=== PATIENT | female | born 1995 | race American Indian/Alaskan Native ===

== ENCOUNTER 2017-01-19 23:09 | Inpatient (IN) | payer BC ==
--- NOTE | 2017-01-19 23:24 | ED PDOC ---
Arrival/HPI - General Time Seen by Provider: 01/19/17 23:24 Historian: Patient - History of Present Illness Narrative History of Present Illness (Text): 01/19/17 23:24 21y/o female, no significant pmh, nkda, c/o facial swelling and itching started about 9 hours ago. Pt. stated that she started to have eyelid and facial swelling started about 8 hours ago after sleeping, took benadryl with mild improvement and but started to have lip swelling tonight, no difficulty breathing or swallowing, no night sweat, stated that she feels itching, no eye pain, no painful movement of the eye, no palpitation, no rash, no other medical or psychological complaints. Last benadryl about 8 hours ago. Past Medical History - Provider Review Nursing Documentation Reviewed: Yes - Infectious Disease Hx of Infectious Diseases: None - Psychiatric Hx Substance Use: No - Anesthesia Hx Anesthesia: No - Suicidal Assessment Feels Threatened In Home Enviroment: No Family/Social History - Physician Review Nursing Documentation Reviewed: Yes Family/Social History: Unknown Family HX Smoking Status: Never Smoked Hx Alcohol Use: Yes Hx Substance Use: No Allergies/Home Meds Allergies/Adverse Reactions: Allergies No Known Allergies Allergy (Verified 01/19/17 23:23) Home Medications: Home Meds Medication Instructions Recorded Confirmed No Known Home Med 01/07/12 01/20/17 Review of Systems - Review of Systems Constitutional: absent: Fatigue, Fevers Eyes: absent: Vision Changes ENT: absent: Hearing Changes, Sore Throat Respiratory: absent: SOB, Cough Cardiovascular: absent: Chest Pain Gastrointestinal: absent: Abdominal Pain, Nausea, Vomiting Musculoskeletal: absent: Arthralgias, Back Pain Neurological: absent: Headache, Dizziness Psychiatric: absent: Depression Physical Exam Vital Signs Reviewed: Yes Vital Signs Temp Pulse Resp BP Pulse Ox 01/20/17 02:00 69 16 118/76 99 01/19/17 23:24 99.4 F 82 18 120/82 100 Temperature: Afebrile Blood Pressure: Normal Pulse: Regular Respiratory Rate: Normal Appearance: Positive for: Well-Appearing, Non-Toxic, Comfortable Pain Distress: None Mental Status: Positive for: Alert and Oriented X 3 - Systems Exam Head: Present: Atraumatic, Normocephalic Pupils: Present: PERRL Extroacular Muscles: Present: EOMI Conjunctiva: Present: Normal Mouth: Present: Moist Mucous Membranes, Normal Tounge Pharnyx: No: Muffled/Hoarse Voice, Strider, Soft Palate/Uvular Edema Neck: Present: Normal Range of Motion, Trachea Midline. No: Lymphadenopathy Respiratory/Chest: Present: Clear to Auscultation, Good Air Exchange. No: Respiratory Distress, Accessory Muscle Use, Wheezes, Decreased Breath Sounds, Rales, Retracting, Rhonchi, Tachypneic, Tender to Palpation Cardiovascular: Present: Regular Rate and Rhythm, Normal S1, S2. No: Murmurs Abdomen: Present: Normal Bowel Sounds. No: Tenderness, Distention, Peritoneal Signs Back: Present: Normal Inspection Upper Extremity: Present: Normal Inspection. No: Cyanosis, Edema Lower Extremity: Present: Normal Inspection. No: Edema Neurological: Present: GCS=15, Speech Normal, Motor Func Grossly Intact, Gait Normal, Memory Normal Skin: Present: Warm, Dry, Rashes (+bilateral perirobital swelling and no erythematous/cellulitis or streaking, +angioedema noted. ), Normal Color Psychiatric: Present: Alert, Oriented x 3, Normal Insight, Normal Concentration Medical Decision Making ED Course and Treatment: 01/19/17 23:43 -labs -IV solumedrol/pepcid/benadryl/epi 0.3mg -environmental monitoring technician -observe and reassess 01/20/17 00:12 -urine hcg negative. 01/20/17 01:23 -Labs are non-significant except elevated eosinophil. -The swelling remains with the rt. sided of the eyelid more swelling now, will need observation overnight. -Pt. evaluated by Dr. Campos and agreed this will need over night observation. -Pt. has no airway compromising at this point, no throat or tongue itching/ swelling, not stable to be discharged home. -Dr. Mckinney paged. 01/20/17 01:31 -Dr. Mckinney called back, discussed about the case and expressed my concerning about worsening of the facial swelling, request to place the patient to be on the tele. -Dr. Read awared of the discussion and agreed on the observation tele plan. -Pt. will need close observation for possible airway endanger due to the angioedema and will need closer observation than just plain med/surg floor. - Lab Interpretations Lab Results: 01/20/17 00:10 12/04/17 00:10 Lab Results 01/20/17 00:10: Sodium 141, Potassium 3.6, Chloride 107, Carbon Dioxide 25, Anion Gap 14, BUN 13, Creatinine 1.0, Est GFR ( Amer) > 60, Est GFR (Non- Af Amer) > 60, Random Glucose 95, Calcium 9.6, Total Bilirubin 0.5, AST 38 H, ALT 39, Alkaline Phosphatase 57, Total Protein 7.5, Albumin 4.3, Globulin 3.3, Albumin/Globulin Ratio 1.3 01/20/17 00:10: WBC 7.0 D, RBC 4.92, Hgb 14.4, Hct 42.6, MCV 86.6, MCH 29.3, MCHC 33.8, RDW 12.6, Plt Count 384, MPV 10.1, Gran % 41.5 L, Lymph % (Auto) 38.1 H, Coos % (Auto) 6.8 H, Eos % (Auto) 12.9 H, Baso % (Auto) 0.7, Gran # 2.92 , Lymph # 2.7, Coos # 0.5, Eos # 0.9 H, Baso # 0.05 - RAD Interpretation Radiology Orders: 01/20/17 01:27 CHEST PORTABLE [RAD] Stat no active disease Information Systems Security Developer: Radiologist - Medication Orders Current Medication Orders: Discontinued Medications Albuterol/Ipratropium (Duoneb 3 Mg/0.5 Mg (3 Ml) Ud) 3 ml IH [id number] Last Admin: 01/22/17 14:03 Dose: Diphenhydramine HCl (Benadryl) 50 mg IVP STAT STA Stop: 01/19/17 23:39 Last Admin: 01/20/17 00:00 Dose: 50 mg IVP Administration Document 01/20/17 00:00 SC (Rec: 01/20/17 00:25 [place] [facility] [id number] Charges for Administration # of IVP Administrations 1 Diphenhydramine HCl (Benadryl) 50 mg IVP Q6H PRN PRN Reason: Allergy symptoms Last Admin: 01/20/17 10:15 Dose: 50 mg IVP Administration Document 01/20/17 10:15 RDS (Rec: 01/20/17 10:15 RDS [id number]) Charges for Administration # of IVP Administrations 1 Diphenhydramine HCl (Benadryl) 25 mg PO Q6 PRN PRN Reason: Allergy symptoms Last Admin: 01/21/17 21:11 Dose: 25 mg Epinephrine HCl (Epinephrine) 0.3 mg SC STAT STA Stop: 01/19/17 23:40 Last Admin: 01/20/17 00:00 Dose: 0.3 mg Subcutaneous Administrations Document 01/20/17 00:00 SC (Rec: 01/20/17 00:26 [place] [facility] [id number][place] Injection Site MAR Injection Site Left Deltoid Charges for Administration # of Subcutaneous Administrations 1 Famotidine (Pepcid) 20 mg IVP STAT STA Stop: 01/19/17 23:39 Last Admin: 01/20/17 00:00 Dose: 20 mg IVP Administration Document 01/20/17 00:00 SC (Rec: 01/20/17 00:26 [place] [facility] [id number] Charges for Administration # of IVP Administrations 1 Famotidine (Pepcid) 20 mg IVP DAILY [facility] Last Admin: 01/21/17 09:12 Dose: 20 mg IVP Administration Document 01/21/17 09:12 J (Rec: 01/21/17 09:12 [id number]) Charges for Administration # of IVP Administrations 1 Famotidine (Pepcid) 40 mg PO HS [facility] Last Admin: 01/21/17 21:12 Dose: 40 mg Famotidine (Pepcid) 20 mg PO HS YAEL Famotidine (Pepcid) 20 mg PO HS YAEL Methylprednisolone (Solu-Medrol) 125 mg IVP STAT STA Stop: 01/19/17 23:39 Last Admin: 01/20/17 00:00 Dose: 125 mg IVP Administration Document 01/20/17 00:00 SC (Rec: 01/20/17 00:26 [place] [facility] [id number][place] Charges for Administration # of IVP Administrations 1 Methylprednisolone (Solu-Medrol) 40 mg IVP Q6H [facility] Last Admin: 01/21/17 16:57 Dose: 40 mg IVP Administration Document 01/21/17 16:57 TO (Rec: 01/21/17 16:58 [place] [facility] [id number][place] Charges for Administration # of IVP Administrations 1 Methylprednisolone (Solu-Medrol) 30 mg IVP Q6H [facility] Last Admin: 01/22/17 08:51 Dose: 30 mg IVP Administration Document 01/22/17 08:51 LMN (Rec: 01/22/17 08:51 LMN [facility] [id number][place] Charges for Administration # of IVP Administrations 1 Methylprednisolone (Solu-Medrol) 30 mg IVP BID [facility] Montelukast Sodium (Singulair) 10 mg PO HS [facility] Last Admin: 01/21/17 21:12 Dose: 10 mg - PA / PLANT CLERK / Resident Statement MD/DO has reviewed & agrees with the documentation as recorded. MD/DO has examined the patient and agrees with the treatment plan. Disposition/Present on Arrival - Present on Arrival Any Indicators Present on Arrival: No History of DVT/PE: No History of Uncontrolled Diabetes: No Urinary Catheter: No History of Decub. Ulcer: No History Surgical Site Infection Following: None - Disposition Have Diagnosis and Disposition been Completed?: Yes Diagnosis: Angioedema Disposition: HOSPITALIZED Disposition Time: :27 Patient Plan: Observation, Telemetry Condition: GUARDED
[2017-01-19] MEDS ORDERED: DiphenhydrAMINE 50 mg/ml Inj IVP STA (23:38)
[2017-01-19] MEDS ORDERED: EPINEPHrine 1 mg/ml (1:1000) Inj SC STA (23:39)
[2017-01-20 00:54] LABS: BASO # 0.05 K/mm3 (0.0-2.0); BASO % 0.7 % (0.0-3.0); EOS # 0.9 (0.0-0.7); EOS % 12.9 % (1.5-5.0); GRAN # 2.92 (1.4-6.5); GRAN % 41.5 % (50.0-68.0); HEMATOCRIT 42.6 % (36.0-48.0); LYMPH # 2.7 (1.2-3.4); LYMPH % 38.1 % (22.0-35.0); MEAN CELL VOLUME 86.6 fl (80.0-105.0); MEAN CORPUSCULAR HEMOGLOBIN 29.3 pg (25.0-35.0); MEAN CORPUSCULAR HGB CONC 33.8 g/dl (31.0-37.0); MEAN PLATELET VOLUME 10.1 fl (7.0-11.0); MONO # 0.5 (0.1-0.6); MONO % 6.8 % (1.0-6.0); RED CELL DISTRIBUTION WIDTH 12.6 % (11.5-14.5)
[2017-01-20 00:59] LABS: ALB/GLOB RATIO 1.3 (1.1-1.8); ALKALINE PHOSPHATASE 57 U/L (38-126); ALT/SGPT 39 U/L (7-56); AST/SGOT 38 U/L (14-36); BILIRUBIN,TOTAL 0.5 mg/dL (0.2-1.3); BLOOD UREA NITROGEN 13 mg/dL (7-21); CALCIUM 9.6 mg/dL (8.4-10.5); CARBON DIOXIDE 25 mmol/L (21-33); CHLORIDE 107 mmol/L (98-107); GFR AFRICAN-AMERICAN > 60; GLUCOSE,RANDOM 95 mg/dL (70-110); POTASSIUM 3.6 mmol/L (3.6-5.0); SODIUM 141 mmol/L (132-148); TOTAL PROTEIN 7.5 g/dL (5.8-8.3)
[2017-01-20 06:19] VITALS: BMI 20.9
--- NOTE | 2017-01-20 08:39 | RAD ---
HISTORY: medical clearance COMPARISON: 09/25/2014 FINDINGS: LUNGS: No active pulmonary disease. PLEURA: No significant pleural effusion identified, no pneumothorax apparent. CARDIOVASCULAR: Normal. OSSEOUS STRUCTURES: No significant abnormalities. VISUALIZED UPPER ABDOMEN: Normal. OTHER FINDINGS: None. IMPRESSION: No active disease.
[2017-01-20] MEDS ORDERED: DiphenhydrAMINE 50 mg/ml Inj IVP PRN (10:02)
[2017-01-20] MEDS: MethylPREDNISolone 40 mg Vial IVP SCH ×3 (10:15→21:30)
[2017-01-20] MEDS: Albuterol-Ipratrop 3 mg / 0.5 (3 ml) UD IH SCH ×2 (14:23→19:37)
--- NOTE | 2017-01-20 17:55 | CP.PCM.HP ---
<Queenie Paul - Last Filed: 01/21/17 00:40> History of Present Illness - History of Present Illness History of Present Illness: 21 yr female w/ no past medical history. Presents with angioedema of face and esophilia. She denies any allergies to food and any changes in the foods eaten. She denies any headaches, vision changes, dizziness/ lightheadedness, numbness/tingling, SOB, chest pain, diarrhea, constipation or urinary frequency. No distress noted. Present on Admission - Present on Admission Any Indicators Present on Admission: No History of DVT/PE: No History of Uncontrolled Diabetes: No Urinary Catheter: No Decubitus Ulcer Present: No Review of Systems - Review of Systems Systems not reviewed;Unavailable: Acuity of Condition - Constitutional Constitutional: As Per HPI - EENT Eyes: absent: As Per HPI, Blind Spots, Blurred Vision, Change in Vision, Decreased Night Vision, Diplopia, Discharge, Dry Eye, Exophthalmos, Floaters ( edema of bilateral eyes ), Irritation (edema), Itchy Eyes, Loss of Peripheral Vision, Pain, Photophobia, Requires Corrective Lenses, Sees Flashes, Spots in Vision, Tunnel Vision, Other Visual Disturbances, Loss of Vision, Other Nose/Mouth/Throat: Facial Pain (severe swelling of lips and face) - Cardiovascular Cardiovascular: As Per HPI. absent: Acrocyanosis, Chest Pain, Chest Pain at Rest, Chest Pain with Activity, Claudication, Diaphoresis, Dyspnea, Dyspnea on Exertion, Edema, Irregular Heart Rhythm, Pain Radiating to Arm/Neck/Jaw, Leg Edema, Leg Ulcers, Lightheadedness, Orthopnea, Palpitations, Paroxysmal Nocturnal Dyspnea, Pedal Edema, Radiating Pain, Rapid Heart Rate, Slow Heart Rate, Syncope, Other - Respiratory Respiratory: As Per HPI. absent: Cough, Dyspnea, Hemoptysis, Dyspnea on Exertion, Wheezing, Snoring, Stridor, Pain on Inspiration, Chest Congestion, Excessive Mucous Production, Change in Mucous Color, Pain with Coughing, Other - Gastrointestinal Gastrointestinal: As Per HPI. absent: Abdominal Pain, Belching, Bloating, Change in Bowel Habits, Change in Stool Character, Coffee Ground Emesis, Constipation, Cramping, Diarrhea, Dyspepsia, Dysphagia, Early Satiety, Excessive Flatus, Fecal Incontinence, Heartburn, Hematemesis, Hematochezia, Loose Stools, Melena, Nausea, Odynophagia, Temesmus, Vomiting, Other - Genitourinary Genitourinary: As Per HPI. absent: Change in Urinary Stream, Difficulty Urinating, Dysuria, Flank Pain, Hematuria, Pyuria, Nocturia, Urinary Incontinence, Urinary Frequency, Urinary Hesitance, Urinary Urgency, Voiding Freq/Small Amts, Freq UTI, Hx Renal/Bladder Calculi, Hx /Renal Surgery, Bladder Distension, Other - Reproductive: Female Reproductive:Female: Currently Menstual. absent: As Per HPI, Amenorrhea, Amenorrhea/ Control, Cycle <21 Days, Cycle >35 Days, Cycle Variable, Menses 1-7 Days, Menses >/= 8 Days, Menses Variable, Cycle > 4 Weeks Between, No Menses for 6 Months, Heavy Menses, Light Menses, Normal Menses, Spotting Between Cycles, S/P Hysterectomy, Menopausal, Post Menopausal, Premenarche, Abnormal Vaginal Bleeding, Dysmenorrhea, Dyspareunia, Genital Lesions, Genital Pruritis, Pelvic Pain, Prolapse Symptoms, Sexual Dysfunction, Vaginal Discharge , Vaginal Dryness, Vaginal Odor, Vaginal Pruritis, Other - Musculoskeletal Musculoskeletal: As Per HPI. absent: Abnormal Gait, Arthralgias, Atrophy, Back Pain, Deformity, Joint Swelling, Limited Range of Motion, Loss of Height, Muscle Cramps, Muscle Weakness, Myalgias, Neck Pain, Numbness, Radiating Pain into Limb, Stiffness, Tingling, Other - Integumentary Additional comments: severe edema of face - Neurological Neurological: As Per HPI. absent: Abnormal Gait, Abnormal Hearing, Abnormal Movements, Abnormal Speech, Behavioral Changes, Burning Sensations, Confusion, Convulsions, Disequilibrium, Dizziness, Numbness, Focal Weakness, Frequent Falls , Headaches, Lack of Coordination, Loss of Vision, Memory Loss, Paresthesias, Radicular Pain, Restless Legs, Sensory Deficit, Syncope, Tingling, Tremor, Vertigo, Weakness, Other Visual Disturbances, Other - Psychiatric Psychiatric: As Per HPI. absent: Abnormal Sleep Pattern, Anhedonia, Anxiety, Auditory Hallucinations, Behavioral Changes, Change in Appetite, Change in Libido, Confusion, Depression, Difficulty Concentrating, Hallucinations, Homicidal Ideation, Hopelessness, Irritability, Memory Loss, Mood Swings, Panic Attacks, Paranoia, Suicidal Ideation, Visual Hallucinations, Tactile Hallucinations, Other - Endocrine Endocrine: As Per HPI. absent: Change in Body Appearance, Change in Libido, Cold Intolorance, Deepening of Voice, Excessive Sweating, Fatigue, Flushing, Heat Intolorance, Increase in Ring/Shoe/Hat Size, Palpitations, Polydipsia, Polyphagia, Polyuria, Other - Hematologic/Lymphatic Hematologic: As Per HPI. absent: Easy Bleeding, Easy Bruising, Lymphadenopathy , Other Past Patient History - Infectious Disease Hx of Infectious Diseases: None - Past Medical History & Family History Past Family History: Reviewed and not pertinent - Past Social History Smoking Status: marijuana Alcohol: Social Drugs: Cannabis - CARDIAC Hx Cardiac Disorders: No - PULMONARY Hx Respiratory Disorders: No - NEUROLOGICAL Other/Comment: hereditary angio edema - HEENT Hx HEENT Problems: No - RENAL Hx Chronic Kidney Disease: No - ENDOCRINE/METABOLIC Hx Endocrine Disorders: No - HEMATOLOGICAL/ONCOLOGICAL Hx Blood Disorders: No - INTEGUMENTARY Hx Dermatological Problems: No - MUSCULOSKELETAL/RHEUMATOLOGICAL Hx Falls: No - GASTROINTESTINAL Hx Gastrointestinal Disorders: No - GENITOURINARY/GYNECOLOGICAL Hx Genitourinary Disorders: No LMP:: 01/20/17 - PSYCHIATRIC Hx Substance Use: Yes (loan) - SURGICAL HISTORY Hx Surgeries: No - ANESTHESIA Hx Anesthesia: No Meds Allergies/Adverse Reactions: Allergies Allergy/AdvReac Type Severity Reaction Status Date / Time No Known Allergies Allergy Verified 01/19/17 23:23 Physical Exam - Constitutional Appears: In Acute Distress (severe edema of face) - Head Exam Head Exam: ATRAUMATIC, NORMAL INSPECTION, NORMOCEPHALIC - Eye Exam Eye Exam: Periorbital swelling, Periorbital tenderness. absent: Conjunctival injection, EOMI, Normal appearance, Nystagmus, PERRL, Scleral icterus - ENT Exam ENT Exam: Mucous Membranes Moist Additional comments: angioedema of lips - Neck Exam Neck exam: Positive for: Full Rom - Respiratory Exam Respiratory Exam: Clear to Auscultation Bilateral, NORMAL BREATHING PATTERN. absent: Accessory Muscle Use, Chest Wall Tenderness, Decreased Breath Sounds, Prolonged Expiratory Phase, Rales, Rhonchi, Wheezes, Respiratory Distress, Stridor - Cardiovascular Exam Cardiovascular Exam: REGULAR RHYTHM. absent: Bradycardia, Tachycardia, Clicks, Diastolic murmur, Gallop, Irregular Rhythm, JVD, RRR, Rubs, +S1, +S2, +S4, Systolic Murmur - GI/Abdominal Exam GI & Abdominal Exam: Normal Bowel Sounds, Soft. absent: Bruit, Diminished Bowel Sounds, Distended, Firm, Guarding, Hernia, Hyperactive Bowel Sounds, Hypoactive Bowel Sounds, Mass, Organomegaly, Pulsatile Mass, Rebound, Rigid, Tenderness - Extremities Exam Extremities exam: Positive for: normal inspection. Negative for: calf tenderness, full ROM, joint swelling, normal capillary refill, pedal edema, tenderness, pedal pulses present - Back Exam Back exam: NORMAL INSPECTION. absent: CVA tenderness (L), CVA tenderness (R), FULL ROM, muscle spasm, paraspinal tenderness, rash noted, tenderness, vertebral tenderness - Neurological Exam Neurological exam: Alert, CN II-XII Intact, Normal Gait, Oriented x3, Reflexes Normal - Psychiatric Exam Psychiatric exam: Normal Affect, Normal Mood - Skin Skin Exam: Urticaria Results - Vital Signs Recent Vital Signs: Last Vital Signs Temp 98.2 F 01/20/17 06:00 Pulse 98 H 01/20/17 14:18 Resp 18 01/20/17 06:00 BP 125/80 01/20/17 06:00 Pulse Ox 95 01/20/17 06:00 - Labs Result Diagrams: 01/20/17 00:10 01/20/17 00:10 Assessment & Plan (1) Allergic angioedema Status: Acute (2) Angioedema Status: Acute (3) Eosinophilia Status: Acute (4) Abnormal liver function Status: Acute - Assessment and Plan (Free Text) Plan: IV solumedryl/pepcis/benadryl/epi given Will continue Telemonitoring for 24hr period due to extent of edema. Reviewed: CXR = (-) WNL Decision To Admit - Pt Status Changed To: Hospital Disposition Of: Inpatient Admission - Admit Certification Admit to Inpatient:: After my assessment, the patient will require hospitalization for at least two midnights. This is because of the severity of symptoms shown, intensity of services needed, and/or the medical risk in this patient being treated as an outpatient. - . Bed Request Type: Telemetry <Nicolasa Mckinney - Last Filed: 01/21/17 09:30> Results - Vital Signs Recent Vital Signs: Last Vital Signs Temp 97.7 F 01/21/17 06:00 Pulse 87 01/21/17 06:00 Resp 20 01/21/17 06:00 BP 107/69 01/21/17 06:00 Pulse Ox 97 01/21/17 06:00 - Labs Result Diagrams: 01/20/17 00:10 01/20/17 00:10 Assessment & Plan - Assessment and Plan (Free Text) Plan: pt is s/e at bed side , had facial swelling , no sob , solumedrol and singuler started , cont. observing her . will f/u . agreed all above
[2017-01-21 00:07] VITALS: RESP 20
[2017-01-21] MEDS: Albuterol-Ipratrop 3 mg / 0.5 (3 ml) UD IH SCH ×2 (01:29→20:22)
--- NOTE | 2017-01-21 03:08 | CON ---
PULMONARY CONSULTATION DATE: 01/20/2017 REFERRING PHYSICIAN: Nicolasa Mckinney MD REASON FOR CONSULT: Admitted with allergic reaction and carry a diagnosis for hereditary angioedema. HISTORY OF PRESENT ILLNESS: This is a 21-year-old female with known history of hereditary angioedema. The patient cannot recall any recent incident to trigger the swelling other than stress related issues. In the ER, she was feeling some shortness of breath and treated with Benadryl, epinephrine, Pepcid, and Solu-Medrol, presently on the floor, feels better, and still have a whole facial swelling. According to the patient, her usual symptoms are peripheral edema. At this time, she has mostly facial edema. Presently, breathing is better. No nausea. No vomiting. No diarrhea. No leg pain or leg swelling. PAST MEDICAL HISTORY: Hereditary angioedema. MEDICATIONS: She is on Benadryl 25 mg q.6 hours p.r.n., DuoNeb q.6 hours, Pepcid 20 mg daily, Singulair 10 mg daily, and Solu-Medrol 40 mg q.6 hours. ALLERGIES: NONE KNOWN. FAMILY HISTORY: No significant cardiopulmonary disease reported. SOCIAL HISTORY: She is a nonsmoker and uses marijuana some times. REVIEW OF SYSTEMS: Presently no headache. Eyes are almost closed. She has a facial swelling. Presently, no shortness of breath. No nausea. No vomiting. No diarrhea. No leg pain or leg swelling. PHYSICAL EXAMINATION: GENERAL: In no acute distress. VITAL SIGNS: Temperature is 98, heart is 98, respiratory rate is 18, blood pressure is 125/80, and pulse ox is 95% on room air. HEENT: Moist mucous membrane. Crowded airway. Has a whole facial swelling. HEART: S1 and S2. LUNGS: Has a fair airflow with few rhonchi. ABDOMEN: Soft and nontender. No organomegaly. EXTREMITIES: There is no edema. NEUROLOGICAL: Awake, alert, and follows simple commands. LABORATORY DATA: Shows hemoglobin 14.4, hematocrit 42.6, WBC 7.0, and platelet count is 384. Sodium 141, potassium 3.6, chloride 107, bicarbonate 25, BUN 13, creatinine 1.0, glucose 95, calcium is 9.6, AST 38, ALT 39, alkaline phosphatase is 57, and albumin is 4.3. Urinalysis is unremarkable. IMPRESSION AND PLAN: Hereditary angioedema. Today, manifestation is mostly facial, did have some laryngeal edema with shortness of breath, which is improved with antihistamine, H2 deep, and steroids. Presently, feels little better. Agreed with continue steroids, bronchodilator, H2 deep, and antihistamine. May have to order workup for hereditary angioedema to confirm the diagnosis. Thank you and we will follow with you. Nithin Santos MD
[2017-01-21] MEDS: MethylPREDNISolone 40 mg Vial IVP SCH ×4 (04:35→21:09)
[2017-01-22] MEDS: MethylPREDNISolone 40 mg Vial IVP SCH ×2 (02:04→08:51)
[2017-01-22 02:17] VITALS: PULSE 64
[2017-01-22] MEDS: Albuterol-Ipratrop 3 mg / 0.5 (3 ml) UD IH SCH ×3 (03:30→14:03)
[2017-01-22 07:39] LABS: HEMATOCRIT 36.7 % (36.0-48.0); MEAN CORPUSCULAR HEMOGLOBIN 28.4 pg (25.0-35.0); MEAN CORPUSCULAR HGB CONC 32.7 g/dl (31.0-37.0); MEAN PLATELET VOLUME 10.1 fl (7.0-11.0); WHITE BLOOD COUNT 10.5 10^3/ul (4.5-11.0)
[2017-01-22 07:47] LABS: BLOOD UREA NITROGEN 13 mg/dL (7-21); CALCIUM 9.6 mg/dL (8.4-10.5); CARBON DIOXIDE 24 mmol/L (21-33); CHLORIDE 107 mmol/L (98-107); CHOLESTEROL 153 mg/dL (130-200); GFR AFRICAN-AMERICAN > 60; GLUCOSE,RANDOM 136 mg/dL (70-110); POTASSIUM 4.3 mmol/L (3.6-5.0); SODIUM 141 mmol/L (132-148)
[2017-01-22 08:21] LABS: IRON 47 ug/dL (45-180)
--- NOTE | 2017-01-22 08:24 | PN ---
DATE: 01/21/2017 SUBJECTIVE: The patient is seen and examined at the bedside, looks a lot of better as compared to yesterday, now I can see her at least eyes. Swelling of the feet is better. No shortness of breath. No nausea, vomiting, diarrhea. No hematuria. No hematochezia. No headache. No chest pain. No palpitation. PHYSICAL EXAMINATION VITAL SIGNS: Temperature 98.2, pulse 58, blood pressure 113/76 and respiratory rate 20. HEENT: Head normocephalic and atraumatic. Eyes; PERRLA. Extraocular muscles intact. Conjunctivae are clear. Nose is patent. Mucous membranes moist. NECK: Supple. No carotid bruits. No JVD or thyromegaly. CHEST: Bilaterally symmetrical. HEART: S1 and S2 positive. LUNGS: Clear to auscultation. ABDOMEN: Soft. Bowel sounds present. No organomegaly. EXTREMITIES: No edema. No cyanosis. NEUROLOGIC: The patient is awake and alert. Moving all 4 extremities. No focal deficits. MEDICATIONS: Benadryl, albuterol, Pepcid, Singulair, Solu-Medrol. LABORATORY DATA: We do not have recent labs today, but I reviewed old labs. ASSESSMENT AND PLAN: The patient is 21-year-old lady with abnormal liver function tests, complement C is less than 8. Admitted with allergic reaction and she is diagnosed for hereditary angioedema. As per patient, her old doctor made the diagnosis and I told her to bring old records and manifestation this time was mainly facial. She did have some laryngeal edema with shortness of breath yesterday, but that improved with antihistamine H2 deep and steroid, that presently feels better. We will taper down the steroid. Continue H2 deep antihistamine and we will review the patient's hereditary angioedema workup as soon as she brings her old records. We will follow up. Nicolasa Mckinney MD
--- NOTE | 2017-01-22 08:24 | PN ---
DATE: 01/21/2017 PULMONARY PROGRESS NOTE REFERRING PHYSICIAN: Dr. Mckinney. SUBJECTIVE: She is lying in bed, head at 45-degree, using ice pack for the facial swelling, it is much better, mild swelling. OBJECTIVE: VITAL SIGNS: , respiratory rate is 20, blood pressure 113/76, pulse of 98, pulse oximetry room air. HEENT: Moist mucous membrane. Crowded airway. Mallampati score is 4. NECK: Supple. No JVD. CARDIOPULMONARY: S1, S2. LUNGS: Have a few scattered rhonchi. ABDOMEN: Soft, nontender. No organomegaly. EXTREMITIES: No edema. NEUROLOGIC: Awake, alert. Follows simple commands. LABORATORY DATA: Reviewed. Complement C4 is less than 8. MEDICATIONS: She is on Benadryl 25 mg q.6 h. p.r.n., DuoNebs q.6 h., Pepcid 40 mg daily, Singulair 10 mg daily, Solu-Medrol 30 mg q.6 h. ASSESSMENT AND PLAN: Hereditary angioedema. is mostly facial swelling with some shortness of breath and may have a component of laryngeal edema. Clinically, she is much improved since yesterday; so continue on H2 deep, IV steroids, antihistamine, p.r.n. ice pack. Follow up labs in the morning. Will follow with you. Nithin Santos MD cc:
[2017-01-22 09:12] VITALS: BP 117/51; TEMP 98.9; O2SAT 94
[2017-01-22] MEDS ORDERED: MethylPREDNISolone 40 mg Vial IVP SCH (10:00)
[2017-01-22 13:32] LABS: FOLATE 16.7 ng/mL
--- NOTE | 2017-01-22 14:45 | CP.PCM.DIS ---
Provider - Provider Date of Admission: 01/20/17 13:46 Attending physician: Nicolasa Mckinney MD Primary care physician: Comfort Tarango MD Time Spent in preparation of Discharge (in minutes): 30 Diagnosis - Discharge Diagnosis (1) Allergic angioedema Status: Acute (2) Angioedema Status: Acute (3) Eosinophilia Status: Acute (4) Abnormal liver function Status: Acute Hospital Course - Lab Results Lab Results: Most Recent Lab Values WBC 10.5 10^3/ul (4.5-11.0) D 01/22/17 06:30 RBC 4.22 10^6/uL (3.5-6.1) 01/22/17 06:30 Hgb 12.0 g/dL (12.0-16.0) D 01/22/17 06:30 Hct 36.7 % (36.0-48.0) 01/22/17 06:30 MCV 87.0 fl (80.0-105.0) 01/22/17 06:30 MCH 28.4 pg (25.0-35.0) 01/22/17 06:30 MCHC 32.7 g/dl (31.0-37.0) 01/22/17 06:30 RDW 13.0 % (11.5-14.5) 01/22/17 06:30 Plt Count 356 10^3/uL (120.0-450.0) 01/22/17 06:30 MPV 10.1 fl (7.0-11.0) 01/22/17 06:30 Gran % 41.5 % (50.0-68.0) L 01/20/17 00:10 Lymph % (Auto) 38.1 % (22.0-35.0) H 01/20/17 00:10 Finney % (Auto) 6.8 % (1.0-6.0) H 01/20/17 00:10 Eos % (Auto) 12.9 % (1.5-5.0) H 01/20/17 00:10 Baso % (Auto) 0.7 % (0.0-3.0) 01/20/17 00:10 Gran # 2.92 (1.4-6.5) 01/20/17 00:10 Lymph # 2.7 (1.2-3.4) 01/20/17 00:10 Finney # 0.5 (0.1-0.6) 01/20/17 00:10 Eos # 0.9 (0.0-0.7) H 01/20/17 00:10 Baso # 0.05 K/mm3 (0.0-2.0) 01/20/17 00:10 Sodium 141 mmol/L (132-148) 01/22/17 06:30 Potassium 4.3 mmol/L (3.6-5.0) 01/22/17 06:30 Chloride 107 mmol/L (98-107) 01/22/17 06:30 Carbon Dioxide 24 mmol/L (21-33) 01/22/17 06:30 Anion Gap 14 (10-20) 01/22/17 06:30 BUN 13 mg/dL (7-21) 01/22/17 06:30 Creatinine 0.9 mg/dl (0.7-1.2) 01/22/17 06:30 Est GFR ( Amer) > 60 01/22/17 06:30 Est GFR (Non-Af Amer) > 60 01/22/17 06:30 Random Glucose 136 mg/dL (70-110) H 01/22/17 06:30 Hemoglobin A1c 5.4 % (4.2-6.5) 01/22/17 06:30 Calcium 9.6 mg/dL (8.4-10.5) 01/22/17 06:30 Iron 47 ug/dL (45-180) 01/22/17 06:30 TIBC 354 ug/dL (265-497) 01/22/17 06:30 % Saturation 13 % (20-55) L 01/22/17 06:30 Total Bilirubin 0.5 mg/dL (0.2-1.3) 01/20/17 00:10 AST 38 U/L (14-36) H 01/20/17 00:10 ALT 39 U/L (7-56) 01/20/17 00:10 Alkaline Phosphatase 57 U/L (38-126) 01/20/17 00:10 Total Protein 7.5 g/dL (5.8-8.3) 01/20/17 00:10 Albumin 4.3 g/dL (3.0-4.8) 01/20/17 00:10 Globulin 3.3 gm/dL 01/20/17 00:10 Albumin/Globulin Ratio 1.3 (1.1-1.8) 01/20/17 00:10 Triglycerides 45 mg/dL (35-160) 01/22/17 06:30 Cholesterol 153 mg/dL (130-200) 01/22/17 06:30 LDL Cholesterol Direct 94 mg/dL (0-129) 01/22/17 06:30 HDL Cholesterol 42 mg/dL (29-60) 01/22/17 06:30 Vitamin B12 828 pg/mL (239-931) 01/22/17 06:30 Folate 16.7 ng/mL 01/22/17 06:30 TSH 3rd Generation 0.25 mIU/mL (0.46-4.68) L 01/22/17 06:30 Complement C4 < 8.0 mg/dL (14.0-44.0) L 01/21/17 05:30 Hepatitis A IgM Ab Negative (NEGATIVE) 01/22/17 06:30 Hep Bs Antigen Negative (NEGATIVE) 01/22/17 06:30 Hep B Core IgM Ab Negative (NEGATIVE) 01/22/17 06:30 Hepatitis C Antibody Negative (NEGATIVE) 01/22/17 06:30 - Hospital Course Hospital Course: 21 yr female w/ no past medical history. Presents with angioedema of face and esophilia. Successfully treated w/ steroids, benadryl, & epi. Reviewed: CXR = (-) WNL Pt cleared for discharge home. - Date & Time of H&P Date of H&P: 01/22/17 Time of H&P: 11:00 Discharge Exam - Head Exam Head Exam: ATRAUMATIC, NORMAL INSPECTION, NORMOCEPHALIC Discharge Plan - Follow Up Plan Condition: GUARDED Disposition: HOME/ ROUTINE Instructions: Pneumococcal Vaccine for Adults (DC), Anaphylaxis (DC), Influenza Vaccine (DC) Additional Instructions: Discharge patient to home today. Report to the ED if your symptoms worsen. Referrals: Comfort Tarango MD [Primary Care Provider] -
== END 2017-01-22 14:31 | disposition home or self-care (01) | DRG 916 ==
LOC: ED 23:09 → ERH 01-20 01:32 → 3RSO 01-20 02:30 → OBSVTOIN 01-20 13:46 → 5RSO 01-21 14:14
PROVIDERS: ADMIT Internal Medicine; ATTEND Internal Medicine
DX: T78.3XXA Angioneurotic edema, initial encounter (principal); D84.1 Defects in the complement system; J38.4 Edema of larynx; F12.90 Cannabis use, unspecified, uncomplicated; R40.2412 Glasgow coma scale score 13-15, at arrival to emergency department